=== PATIENT | male | born 1995 ===

== ENCOUNTER 2017-06-30 08:51 | Day surgery (SDC) | payer OTHER ==
[2017-06-30 09:11] VITALS: BMI 15.6
[2017-06-30] MEDS ORDERED: Propofol 10 mg/ml Inj (20 ML) ONE ×2 (09:29)
[2017-06-30] MEDS ORDERED: Midazolam 2 MG/2 ML VIAL ONE ×2 (09:29→10:08)
[2017-06-30 09:39] LABS: BASO % 0.3 % (0.0-2.0); EOS % 0.1 % (0.0-4.0); HEMOGLOBIN 11.7 g/dL (12.0-18.0); LYMPH # 0.9 K/uL (1.0-4.3); LYMPH % 29.8 % (20.0-40.0); MEAN CELL VOLUME 97.1 fL (80.0-94.0); MEAN CORPUSCULAR HEMOGLOBIN 33.3 pg (27.0-31.0); MEAN CORPUSCULAR HGB CONC 34.3 g/dL (33.0-37.0); MEAN PLATELET VOLUME 8.6 fL (7.2-11.7); MONO # 0.2 K/uL (0.0-0.8); MONO % 5.6 % (0.0-10.0); NEUT # 1.9 K/uL (1.8-7.0); NEUT % 64.2 % (50.0-75.0); NRBC % 0.1 % (0.0-2.0); RBC 3.5 Mil/uL (4.40-5.90); RED CELL DISTRIBUTION WIDTH 14.4 % (11.5-14.5)
[2017-06-30] MEDS ORDERED: Sodium Chloride 0.9% 1,000 ML IV ONE (09:58)
[2017-06-30] MEDS ORDERED: Atropine Sulfate 0.4 mg/ml (0.8mg/2ml) Syringe IV ONE (10:01)
[2017-06-30] MEDS ORDERED: Etomidate 20 mg/10ml Inj IV ONE (10:08)
[2017-06-30 10:11] LABS: ALB/GLOB RATIO 1.4 (1.0-2.1); ALBUMIN 3.9 g/dL (3.5-5.0); ALT/SGPT 62 U/L (21-72); AST/SGOT 41 U/L (17-59); BLOOD UREA NITROGEN 27 mg/dL (9-20); GFR AFRICAN-AMERICAN > 60; GFR NON-AFRICAN AMERICAN > 60
[2017-06-30] MEDS ORDERED: Simethicone 40 mg/0.6 ml Liquid (30 ml) ONE (10:12)
[2017-06-30 11:20] VITALS: O2SAT 100
[2017-06-30 12:06] VITALS: BP 110/79; PULSE 66; RESP 14; TEMP 98
== END 2017-06-30 12:05 | disposition home or self-care (01) ==
LOC: C.ENDO 08:51
PROVIDERS: ATTEND Internal Medicine
DX: K21.9 Gastro-esophageal reflux disease without esophagitis (principal); R68.81 Early satiety; E46 Unspecified protein-calorie malnutrition; K44.9 Diaphragmatic hernia without obstruction or gangrene; K29.70 Gastritis, unspecified, without bleeding; Z79.899 Other long term (current) drug therapy
CPT/HCPCS: 36415; 43239; 80053; 82607; 82728; 84443; 85025; 88305; J2250; J2704; J7040